=== PATIENT | male | born 1925 | race Hispanic/Latino ===

== ENCOUNTER 2016-08-29 09:29 | Emergency (ER) | payer MEDICARE, MEDICAID ==
[~2016-08-29] VITALS: Ht 165.1 cm; Wt 75.0 kg
[~2016-08-29 09:29] MED LIST: ADULT ASPIRIN E81 MG PO; ALAVERT10 MG OR; ALTOPREV20 MG OR; AMLODIPINE5 MG PO; ANTIVERT PO; ASPIRIN EC81 MG PO; AZITHROMYCIN500 MG PO; BABY ASPIRIN81 MG OR; BL ADULT ASA81 MG PO; CIPRO XR500 MG PO; CIPROFLOXACN500 MG PO; COLACE100 MG PO; DEPO-MEDROL80 MG/ML IM; DIGOXIN0.125 MG PO; DIGOXIN0.25 MG PO; DOXYCYCL HYC100 MG PO; EMVERM100 MG PO; FISH OI1 PO; FISH OIL1000 MG PO; FLEXERIL PO; FLEXERIL10 MG PO; FLOXIN OTIC0.3 % OT; IBUPROFEN600 MG PO; ISOSORB MONO30 MG PO; KEFLEX500 MG OR; KETOCONAZOLE2 % EX; KLOR-CON M2020 MEQ PO; LASIX 40 MG TAB40 MG PO; LISINOPRIL10 MG OR; LISINOPRIL10 MG PO; LISINOPRIL20 MG PO; LORTAB 5 PO; LORTAB 5/3255 MG PO; LORTAB 7.57.5 MG OR; LORTAB5 OR; LOVASTATIN20 MG OR; LOVASTATIN40 M1 PO; LOVASTATIN40 MG PO; MEDDOSEPAK PO; MELOXICAM7.5 MG OR; METO25TAB PO; METO50TA52 PO; METOPROL TAR25 MG PO; METOPROLOL50 M1 OR; METOPROLOL50 MG OR; METRONIDAZOL500 MG PO; MULTI VIT; NAPROSYN500 MG PO; NEXIUM40 M1 PO; NEXIUM40 MG PO; NITREK0.4 MG/HR TD; NIZORAL200 MG OR; OMEPRAZOLE20 MG OR; PLAVIX75 MG PO; PREDNISONE20 MG PO; PRILOSEC20 MG PO; PRILOSEC20 MG/CAP PO; PROTONIX40 M2 PO; PROTONIX40 MG PO; PT DOESNT KNOW MEDS; RYBIX ODT50 MG PO; SM ASPIRIN81 M1 OR; TESSALON PER100 MG PO; TORADOL OR; TRAMADOL HCL50 MG PO; ULTRAM50 M1 OR; ULTRAM50 M1 PO; ULTRAM50 MG PO; VENTOLIN HFA IN; ZESTRIL/PRI10 MG/TAB PO; ZITHROMAX250 MG PO; ZITHROMAX500 MG OR; ZOFRAN4 MG/TAB PO; ZPAK PO
[2016-08-29 10:37] LABS: HEMATOCRIT 40.2 % (39.0-50.0); HEMOGLOBIN 13.6 g/dl (14.0-18.0); IMMATURE GRANULOCYTES 0.4 % (0.0-1.0); MEAN CELL VOLUME 88.9 fL CALC (80.0-100.0); MEAN CORPUSCULAR HGB 30.1 pG CALC (26.0-32.0); MEAN CORPUSCULAR HGB CONC 33.8 g/L CALC (32.0-36.0); NEUT# 4.86 thou/uL (1.82-7.42); RED BLOOD COUNT 4.52 mill/uL (4.70-6.10); RED CELL DISTRI WIDTH 15.2 % (11.5-15.5)
[2016-08-29 11:02] LABS: ALBUMIN 4.1 g/dL (3.2-5.0); ALKALINE PHOSPHATASE 74 u/l (38-126); ANION GAP 15 (6-22 (CALC)); BILIRUBIN, TOTAL 0.6 mg/dL (0.0-1.4); BUN 20 mg/dL (8-23); BUN/CREATININE RATIO 25 (12-20 (CALC)); CALCIUM 9.2 mg/dL (8.4-10.2); CARBON DIOXIDE 25 mmol/l (22-30); CHLORIDE 103 mmol/l (95-108); CREATININE 0.8 mg/dL (0.7-1.3); GFR > 60 ML/MIN (>=60 (CALC)); GFR FOR AFR.AMER. > 60 ML/MIN (>=60 (CALC)); GLUCOSE 97 mg/dL (82-115); POTASSIUM 4.1 mmol/l (3.5-5.1); SGOT/AST 31 u/l (19-48); SGPT/ALT 37 u/l (11-66); SODIUM 139 mmol/l (137-146); TOTAL PROTEIN 7.2 g/dL (6.3-8.2)
[2016-08-29 11:15] LABS: MYOGLOBIN 84 ng/mL (0 - 121)
[2016-08-29] MEDS ORDERED: ANTIVERT PO (13:08)
[2016-08-29] MEDS ORDERED: ZOFRAN ODT4 MG PO (13:08)
[2016-08-29 13:25] VITALS: BP 133/59
[2016-08-30] MEDS ORDERED: OMEPRAZOLE20 MG PO (20:08)
[2016-08-30] MEDS ORDERED: DOK100 MG PO (20:09)
[2016-08-30] MEDS ORDERED: LISINOPRIL20 MG PO (20:11)
[2016-08-30] MEDS ORDERED: RANITIDINE150 M1 PO (20:14)
[2016-08-30] MEDS ORDERED: ACCUPRIL5 MG PO (20:15)
== END 2016-08-29 13:36 | disposition home or self-care (01) ==
LOC: ED 09:29
PROVIDERS: Emergency Medicine
DX: R42 Dizziness and giddiness (principal); I10 Essential (primary) hypertension; R06.02 Shortness of breath; R11.0 Nausea; R00.1 Bradycardia, unspecified; R94.31 Abnormal electrocardiogram [ECG] [EKG]

== ENCOUNTER 2016-09-22 12:18 | Emergency (ER) | payer MEDICARE, MEDICAID ==
[~2016-09-22] VITALS: Ht 165.1 cm; Wt 70.0 kg
[~2016-09-22 12:18] MED LIST changes: +ACCUPRIL5 MG PO; +DOK100 MG PO; +OMEPRAZOLE20 MG PO; +RANITIDINE150 M1 PO; +ZOFRAN ODT4 MG PO
[2016-09-22 13:48] LABS: URINE BILIRUBIN - DIPSTICK NEGATIVE (NEGATIVE); URINE BLOOD DIPSTICK NEGATIVE (NEGATIVE); URINE CLARITY CLEAR; URINE COLOR YELLOW; URINE GLUCOSE - DIPSTICK NEGATIVE (NEGATIVE); URINE KETONE NEGATIVE (NEGATIVE); URINE LEUK ESTERASE NEGATIVE (NEGATIVE); URINE NITRITE - DIPSTICK NEGATIVE (Negative); URINE PROTEIN - DIPSTICK NEGATIVE (NEG-TRACE); URINE SPECIFIC GRAVITY 1.015; URINE UROBILINOGEN - DIPSTICK 0.2 E.U./dL (0.2)
[2016-09-22 13:58] LABS: HEMATOCRIT 38.5 % (39.0-50.0); HEMOGLOBIN 13.2 g/dl (14.0-18.0); IMMATURE GRANULOCYTES 1.8 % (0.0-1.0); MEAN CELL VOLUME 88.9 fL CALC (80.0-100.0); MEAN CORPUSCULAR HGB 30.5 pG CALC (26.0-32.0); MEAN CORPUSCULAR HGB CONC 34.3 g/L CALC (32.0-36.0); NEUT# 6.32 thou/uL (1.82-7.42); RED BLOOD COUNT 4.33 mill/uL (4.70-6.10); RED CELL DISTRI WIDTH 14.8 % (11.5-15.5)
[2016-09-22 14:01] LABS: ALBUMIN 4.2 g/dL (3.2-5.0); ALKALINE PHOSPHATASE 79 u/l (38-126); ANION GAP 14 (6-22 (CALC)); BILIRUBIN, TOTAL 0.5 mg/dL (0.0-1.4); BUN 23 mg/dL (8-23); BUN/CREATININE RATIO 25 (12-20 (CALC)); CALCIUM 9.2 mg/dL (8.4-10.2); CARBON DIOXIDE 26 mmol/l (22-30); CHLORIDE 102 mmol/l (95-108); GFR > 60 ML/MIN (>=60 (CALC)); GFR FOR AFR.AMER. > 60 ML/MIN (>=60 (CALC)); GLUCOSE 97 mg/dL (82-115); POTASSIUM 4.3 mmol/l (3.5-5.1); SGOT/AST 31 u/l (19-48); SGPT/ALT 38 u/l (11-66); SODIUM 137 mmol/l (137-146); TOTAL PROTEIN 7.2 g/dL (6.3-8.2)
[2016-09-22 14:13] LABS: MYOGLOBIN 79 ng/mL (0 - 121)
[2016-09-22 14:44] VITALS: BP 129/60
== END 2016-09-22 14:39 | disposition home or self-care (01) ==
LOC: ED 12:18
PROVIDERS: Emergency Medicine
DX: J44.1 Chronic obstructive pulmonary disease with (acute) exacerbation (principal); F41.9 Anxiety disorder, unspecified; R06.02 Shortness of breath; R94.31 Abnormal electrocardiogram [ECG] [EKG]; I10 Essential (primary) hypertension; K21.9 Gastro-esophageal reflux disease without esophagitis

== ENCOUNTER 2016-12-21 08:22 | Emergency (ER) | payer MEDICARE, MEDICAID ==
[~2016-12-21] VITALS: Ht 165.1 cm; Wt 62.0 kg
[2016-12-21] MEDS ORDERED: FISH OIL1000 MG PO (08:32)
[2016-12-21] MEDS ORDERED: VITAMIN C500 M6 PO (08:32)
[2016-12-21] MEDS ORDERED: OMEPRAZOLE10 MG PO (08:34)
[2016-12-21 09:54] LABS: ALBUMIN 4.1 g/dL (3.2-5.0); ALKALINE PHOSPHATASE 93 u/l (38-126); ANION GAP 16 (6-22 (CALC)); BILIRUBIN, TOTAL 0.9 mg/dL (0.0-1.4); BUN 14 mg/dL (8-23); BUN/CREATININE RATIO 17 (12-20 (CALC)); CALCIUM 9.4 mg/dL (8.4-10.2); CARBON DIOXIDE 26 mmol/l (22-30); CHLORIDE 102 mmol/l (95-108); CREATININE 0.8 mg/dL (0.7-1.3); GFR > 60 ML/MIN (>=60 (CALC)); GFR FOR AFR.AMER. > 60 ML/MIN (>=60 (CALC)); GLUCOSE 116 mg/dL (82-115); POTASSIUM 4.4 mmol/l (3.5-5.1); SGOT/AST 26 u/l (19-48); SGPT/ALT 34 u/l (11-66); SODIUM 140 mmol/l (137-146); TOTAL PROTEIN 7.1 g/dL (6.3-8.2)
[2016-12-21 10:11] LABS: HEMATOCRIT 39.3 % (39.0-50.0); HEMOGLOBIN 13.3 g/dl (14.0-18.0); IMMATURE GRANULOCYTES 0.5 % (0.0-1.0); MEAN CORPUSCULAR HGB 30.8 pG CALC (26.0-32.0); MEAN CORPUSCULAR HGB CONC 33.8 g/L CALC (32.0-36.0); NEUT# 10.3 thou/uL (1.82-7.42); RED BLOOD COUNT 4.32 mill/uL (4.70-6.10); RED CELL DISTRI WIDTH 14.2 % (11.5-15.5)
[2016-12-21] MEDS ORDERED: ULTRAM50 M1 PO (10:29)
[2016-12-21] MEDS ORDERED: CLEOCIN150 MG PO (10:29)
[2016-12-21 10:39] VITALS: BP 158/77
== END 2016-12-21 10:39 | disposition home or self-care (01) ==
LOC: ED 08:22
PROVIDERS: Emergency Medicine
DX: K08.89 Other specified disorders of teeth and supporting structures (principal); R51 Headache; I10 Essential (primary) hypertension

== ENCOUNTER 2017-03-13 17:43 | Emergency (ER) | payer MEDICARE, MEDICAID ==
[~2017-03-13] VITALS: Ht 165.1 cm; Wt 61.0 kg
[~2017-03-13 17:43] MED LIST changes: +CLEOCIN150 MG PO; +OMEPRAZOLE10 MG PO; +VITAMIN C500 M6 PO
[2017-03-13 17:49] VITALS: BP 165/79
== END 2017-03-13 19:00 | disposition left against medical advice (07) ==
LOC: ED 17:43 → LWOBS 19:00
DX: Z91.19 Patient's noncompliance with other medical treatment and regimen (principal)